=== PATIENT | female | born 1955 | race Caucasian/White ===

== ENCOUNTER 2021-09-25 10:52 | Outpatient (CLI) | payer MEDICARE | END 2021-09-25 10:53 | disposition home or self-care (01) | LOC: CSHMAMMO 10:52 | PROVIDERS: ATTEND Obstetrics & Gynecology | DX: Z12.31 Encounter for screening mammogram for malignant neoplasm of breast (principal); Z80.3 Family history of malignant neoplasm of breast | CPT/HCPCS: 77063; 77067 ==